=== PATIENT | female | born 1940 ===

== ENCOUNTER 2024-01-27 05:11 | Day surgery (SDC) | payer OTHER ==
[2024-01-06 12:30] VITALS: BP 140/88
[~2024-01-27] VITALS: Ht 157.5 cm; Wt 57.2 kg
[~2024-01-27 05:11] MED LIST: COZAAR25 MG PO
[2024-01-27] MEDS ORDERED: VANCOMYCIN HCL 1,000 MG VIAL IR ONE (08:30)
[2024-01-27] MEDS ORDERED: CHLORHEXIDINE GLUCONATE 120 ML BOTTLE TOP ONE (08:30)
[2024-01-27] MEDS ORDERED: LIDOCAINE HCL 1%/EPINEPHRINE 20ML VIAL IJ ONE (08:30)
[2024-01-27] MEDS ORDERED: CEFAZOLIN SODIUM 1,000 MG VIAL IV ONE (08:30)
[2024-01-27] MEDS ORDERED: TRAM1TAB98 PO (10:07)
[2024-01-27] MEDS ORDERED: MACROBID 100 M100 MG PO (10:08)
== END 2024-01-27 12:05 | disposition home or self-care (01) ==
LOC: CIR.AMB 05:11
PROVIDERS: ATTEND Obstetrics & Gynecology Gynecology
DX: N81.3 Complete uterovaginal prolapse (principal)